=== PATIENT | female | born 1965 | race Two or more races ===

== ENCOUNTER 2020-11-12 19:36 | Emergency (ER) | payer MEDICAID ==
[~2020-11-12] VITALS: Ht 170.2 cm; Wt 75.0 kg
[2020-11-12 20:11] LABS: BASOPHILS % (AUTO) 0.5 % (0-1); EOSINOPHILS % (AUTO) 0.3 % (0-6); HEMATOCRIT 43.6 % (35.0-45.0); HEMOGLOBIN 14.7 g/dl (12.0-16.0); LYMPHOCYTES # (AUTO) 1.8 X10'3 (1.1-4.8); LYMPHOCYTES % (AUTO) 19.9 % (21-51); MEAN CORPUSCULAR HEMOGLOBIN 32.6 PG (27.0-31.0); MEAN CORPUSCULAR HGB CONC 33.8 g/dL (33.0-36.5); MEAN CORPUSCULAR VOLUME 96.5 FL (78-98); MEAN PLATELET VOLUME 9.5 FL (7.4-10.4); MONOCYTES # (AUTO) 0.5 X10'3 (0-0.9); MONOCYTES % (AUTO) 5.3 % (2-12); NEUTROPHILS # (AUTO) 6.6 X10'3 (1.8-7.7); PLATELET COUNT 212 X10'3 (140-440); RED BLOOD COUNT 4.51 X10'6 (4.20-5.60); RED CELL DISTRIBUTION WIDTH 12.6 % (11.5-14.5); WHITE BLOOD COUNT 8.9 X10'3 (4.5-11.0)
[2020-11-12 20:28] LABS: ALANINE AMINOTRANSFERASE 27 U/L (12-78); ALKALINE PHOSPHATASE 126 IU/L (46-116); ANION GAP 7 (8-16); ASPARTATE AMINO TRANSFERASE 15 U/L (10-37); BILIRUBIN,TOTAL 0.4 MG/DL (0.1-1.0); BLOOD UREA NITROGEN 9 MG/DL (7-18); BUN/CREATININE RATIO 11.8 (6.6-38.0); CHLORIDE 107 MMOL/L (99-107); CREATININE 0.76 MG/DL (0.40-0.90); GLUCOSE 95 MG/DL (70-104); POTASSIUM 3.8 MMOL/L (3.5-5.1); SODIUM 143 MMOL/L (135-145); TOTAL CARBON DIOXIDE 29.3 MMOL/L (24-32); TOTAL PROTEIN 7.9 G/DL (6.4-8.2); eGFR 79 ML/MIN
[2020-11-12 20:33] LABS: ETHANOL < 0.010 GM/DL (0.0-0.010)
[2020-11-12 20:50] LABS: URINE HCG NEGATIVE (NEG)
[2020-11-12 21:18] LABS: URINE AMPHETAMINE SCREEN NEGATIVE (Neg); URINE BARBITUATE SCREEN NEGATIVE (Neg); URINE BENZODIAZEPINES SCREEN NEGATIVE (Neg); URINE CANNABINOID SCREEN NEGATIVE (Neg); URINE COCAINE SCREEN NEGATIVE (Neg); URINE METHADONE SCREEN NEGATIVE (Neg); URINE OPIATE SCREEN NEGATIVE (Neg); URINE PHENCYCLIDINE SCREEN NEGATIVE (Neg)
--- NOTE | 2020-11-13 08:00 | NUR ---
Received pt from main ER back to ER overflow. Pt calm and cooperative.
--- NOTE | 2020-11-13 08:48 | NUR ---
SENT [facility]
--- NOTE | 2020-11-13 09:00 | NUR ---
Pt laying in bed. Smiles upon approach. No complaints or requests at this time.
--- NOTE | 2020-11-13 11:00 | NUR ---
Pt currently meeting and cooperating with [facility] media marketing specialist.
--- NOTE | 2020-11-13 13:00 | NUR ---
Pt awake at bed, eating lunch. Pt evaluated by Liborio from [facility] and will remain on 5150. Pt is hypomanic with rapid, pressured speech, at times with a lot of catholic talk. Pt's says she gets like this at times and has been hospitalized once, but stops taking her medications. says pt get paranoid and think his daughter is a prostitute. States she's been living in a car out in front of the house. Pt pleasant on the unit.
--- NOTE | 2020-11-13 15:00 | NUR ---
Pt fell asleep after eating lunch and currently is sleeping without distress.
--- NOTE | 2020-11-13 17:00 | NUR ---
Pt mostly sleeping. Pt did wake up to receive phone call and then returned to sleep.
--- NOTE | 2020-11-13 19:45 | NUR ---
The patient has been resting quietly on her bed. She makes no attempt to socialize. When approached for the evening assessment she gave poor eye contact and was guarded when answering questions. She stated that the police brought her here for "relaxation and rest" When asked where she was living she replied, "whatever places"
--- NOTE | 2020-11-13 20:18 | NUR ---
The patient is resting on her bed and appears to be asleep
--- NOTE | 2020-11-13 21:41 | NUR ---
The patient appears to be sleeping
--- NOTE | 2020-11-13 23:45 | NUR ---
The patient appears to be sleeping
--- NOTE | 2020-11-14 01:03 | NUR ---
The patient appears to be sleeping
--- NOTE | 2020-11-14 03:55 | NUR ---
The patient has been sleeping well but was up once to use the bathroom
--- NOTE | 2020-11-14 05:52 | NUR ---
The patient was moved to the main ER.
--- NOTE | 2020-11-14 13:25 | NUR ---
BREAKING PRIMARY RN, WALKED PT TO THE BR AND GAVE HER HER TRAY, NO NEEDS AT THIS TIME
--- NOTE | 2020-11-14 17:00 | NUR ---
breaking primary rn, pt is laying on her right side, awake, calm, no needs at this time
--- NOTE | 2020-11-14 18:00 | NUR ---
pt is awake, layig on her right side, calm, no needs at this time
--- NOTE | 2020-11-14 20:00 | NUR ---
M, PT FINISHED EATING MEAL. TRAY REMOVED. PT DENIES ANY NEEDS AT THIS TIME. IS SITTING IN BED OBSERVING THE ER. NO NOTED BEHAVIORS.
--- NOTE | 2020-11-15 00:12 | NUR ---
during 1:1 bedside assessment, pt denies si/sh/hi/avh/delusions/paranoid. appears internally preoccupied and responding to internal stimuli AEB talking/muttering to herself. pt has euphoric, bizarre affect. pt refuses to answer direct questions and requests "an alphabet book." pt held up a piece of her lettuce from her meal tray and began hysterically laughing. pt stays in room and does not seek social interactions.
--- NOTE | 2020-11-15 04:52 | NUR ---
PT UP TO BATHROOM AND RETURNED TO ROOM. NO REQUESTS AT THIS TIME.
[2020-11-15 06:43] VITALS: BP 104/43
--- NOTE | 2020-11-15 06:45 | NUR ---
Received Pt in main ER sitting on edge of bed. Pt brout to ER overflow Bed 22. Pt did not respond to questions and is in bed resting w/o distress at this time.
--- NOTE | 2020-11-15 10:26 | NUR ---
Pt slept late and woke at approximately 1000 to use the bathroom and then ate breakfast. Pt's primary language is puerto rican and beninese broken, but able to communicate and get needs met. Pt is sitting at edge of bed drinking coffee. Addendum: 11/15/20 at 1037 by ADDIE Previous note written @1026 was written by Vamsi Barron RN.
--- NOTE | 2020-11-15 13:02 | NUR ---
Pt remains in bed. Used bathroom again and returned to bed where she is awake and quiet.
[2020-11-15] MEDS ORDERED: NO HOME MEDS (17:11)
== END 2020-11-15 14:01 ==
LOC: ER 19:37
DX: F20.9 Schizophrenia, unspecified (principal); Z20.822 Contact with and (suspected) exposure to COVID-19
CPT/HCPCS: 36415; 80053; 80305; 80320; 81025; 84443; 85025; 87426; 99285